=== PATIENT | female | born 1990 ===

== ENCOUNTER 2017-04-11 19:54 | Emergency (ER) | payer MEDICAID ==
--- NOTE | 2017-04-11 21:21 | OBHP ---
Datetime: 04/11/2017 20:19 IP Adm Impression Other: nst reactive IP Admit Plan: Discharge home Admit Comment, IP Provider: Patient here for nst due to hypothyroidism NST reactive discharge home follow up in3 days fpor nst and bpp Pelvic Type - PN: Adequate Extremities - PN: Normal Abdomen - PN: Normal Back - PN: Normal Lungs - PN: Normal Heart - PN: Normal Neurologic - PN: Normal General - PN: Normal EGA AdmitDate IP: 39.4 Vital Signs Provider: Reviewed IP Chief Complaint: evaluation Genitourinary Exam: Normal DTRs - PN: Normal
[2017-04-12 01:32] VITALS: BP 110/70; PULSE 80; RESP 20; TEMP 97.6; O2SAT 97
== END 2017-04-11 21:20 | disposition home or self-care (01) ==
LOC: C.EROB 19:54
DX: Z23 Encounter for immunization (principal); Z3A.39 39 weeks gestation of pregnancy

== ENCOUNTER 2017-04-14 08:03 | Emergency (ER) | payer MEDICAID ==
[2017-04-14 10:59] VITALS: BP 101/58; PULSE 84; RESP 18; TEMP 98.2
--- NOTE | 2017-04-14 11:59 | US ---
PROCEDURE: Obstetrical ultrasound examination and a limited biophysical profile HISTORY: post dates COMPARISON: Not available TECHNIQUE: Transabdominal FINDINGS: The examination demonstrates a single live intrauterine gestation in cephalic presentation. The heart rate is 141 beats per minute. A grossly normal quantity of amniotic fluid is visualized. The BENNY is 13.5 cm. A normal posterior placenta is identified. There is no evidence placenta previa. The cervix measures 2.6 cm in length. biometry yields a gestational age of 40 weeks 0 days. ARTUR by ultrasound is 04/14/2017. The EFW is 3950 g. Umbilical arterial duplex Doppler analysis demonstrates an SD ratio of 2.2. Within normal limits. Limited review of anatomy demonstrates 2 normal kidneys. A three-vessel umbilical cord is identified. The anterior abdominal wall is intact. There is fluid distending the stomach and urinary bladder. A 4 chamber heart is identified. Limited biophysical profile examination yields a score of 8 out of 8. IMPRESSION: Single live intrauterine gestation of approximately 40 weeks 0 days. ARTUR is 04/14/2017. EFW is 3950 g. biophysical profile score 8 out of 8. Cephalic presentation. Posterior placenta with no previa. Normal limited anatomy.
== END 2017-04-14 10:49 | disposition home or self-care (01) ==
LOC: C.EROB 08:03
DX: Z36 Encounter for antenatal screening of mother (principal)

== ENCOUNTER 2017-04-18 09:04 | Emergency (ER) | payer MEDICAID ==
--- NOTE | 2017-04-18 11:49 | US ---
OB ultrasound Ultrasound biophysical profile Indication: Post dates Technique: Grayscale, color flow, and M-mode sonographic images of the single live intrauterine were obtained. Comparison: None available Findings: There is a single live intrauterine gestation. The fetus is in cephalic position. The placenta is posterior. There is no evidence of previa. There is a normal amount of amniotic fluid. The BENNY measures 13.0 cm. M-mode imaging demonstrates a heart rate to be 138.9 beats per min. Cervix length measures approximately 3.4 cm. Fetus has a composite sonographic age of 40 weeks 0 days. This calculation is based on the biparietal diameter, head circumference, abdominal circumference, and femur length. movements 2/2 breathing 2/2 tone 2/2 Amniotic fluid 2/2 Total score impression: 03/07 Impression: Biophysical profile of 8 out of 8. Single live intrauterine in cephalic position with a heart rate of 138.9 beats per min.
--- NOTE | 2017-04-18 12:15 | OBHP ---
Datetime: 04/18/2017 11:43 IP Adm Impression: Term, intrauterine IP Chief Complaint Other: NST IP Admit Plan: Discharge home Admit Comment, IP Provider: Chief complaint- evaluation. HPI 27 yo at 40w4d ARTUR 04/14/17 by first trimester US presents to L and D today for NST. Carlos redd is doing well, no complaints at this time. Endorses +FM, denies CTX, VB, LOF. Patient was seen in the clinic today. 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 SAB 2. Current [employer]ER Hx: LMP - 06/29/16 13/irregular/5-6 days Denies hx of fibroids, ovarian cysts Denies hx of STIs Denies hx of abnormal pap smears Allergies: NKDA Medical Hx: Kim Medications: PNV, Levothyroxine Surgical Hx: D+C Social Hx: denies alcohol, tobacco, drug use PE: see above A/P: 27 yo at 40w4d presents today for NST 1. Stable, afebrile 2. NST reactive, category I tracing 3. BPP today - 03/07 4. Patient clear for discharge home 5. Labor precautions given, patient is scheduled for induction on evening 6. Plan d/w attending Aida Paredes DO PGY-1 Patient examined.Agree with resident exam,assessment and plan Meli Extremities - PN: Normal Abdomen - PN: Normal Back - PN: Normal Lungs - PN: Normal Heart - PN: Normal General - PN: Normal FHR - Baseline A Provider: 135 Comments, ACOG Physical Exam: VS: BP 109/61 HR 77 Gen: AAOx3 Abd: soft, gravid, no fundal tenderness Ext: No clubbing, cyanosis, edema SVE: 1-2/50/-3 EFM: 135, moderate variability, +accels, -decels TOCO: q5-6min BPP- Single IUP, posterior placenta, BENNY 13.0cm, presentation - cephalic EGA AdmitDate IP: 40.4 Vital Signs Provider: Reviewed; Within Normal Limits IP Chief Complaint: Other NICHD Variability Prov Fetus A: Moderate 6-25bpm NICHD Accel Fetus A IP Provider: 15X15 FHR Category Provider Fetus A: Category I NICHD Decel Fetus A IP Provider: None Dilatation, Provider: 1-2 Effacement, Provider: 50 Station, Provider: -3 Datetime: 04/14/2017 10:39 IP Hx Assessment: The History has been Reviewed and is Current
== END 2017-04-18 12:00 | disposition home or self-care (01) ==
LOC: C.EROB 09:04
DX: Z36 Encounter for antenatal screening of mother (principal)

== ENCOUNTER 2017-04-19 00:23 | Inpatient (IN) | payer MEDICAID ==
--- NOTE | 2017-04-19 01:33 | OBADHP ---
Datetime: 04/19/2017 01:22 Admit Comment, IP Provider: chief complaint-decreased movement HPI Chief complaint- evaluation. HPI 27 yo at 40w5d ARTUR 04/14/17 by first trimester US presents to L and D with c/o decrease d movement for last 5 hours..VB, LOF. Patient was seen in the clinic today. 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 - 06/29/16 13/irregular/5-6 days Denies hx of fibroids, ovarian cysts Denies hx of STIs Denies hx of abnormal pap smears Allergies: NKDA Medical Hx: Kim Medications: PNV, Levothyroxine Surgical Hx: D+C Social Hx: denies alcohol, tobacco, drug use PE: see above A/P: 27 yo at 40w5d with c/o decreased movement -admit -see orders Pelvic Type - PN: Adequate Extremities - PN: Normal Abdomen - PN: Normal Back - PN: Normal Lungs - PN: Normal Heart - PN: Normal Neurologic - PN: Normal General - PN: Normal Weight - Estimated: 3400 Presentation-Admit: Vertex Contraction Comments Provider: irregular Gestation - Est Wks by US: 40.5 IP Hx Assessment: The History has been Reviewed and is Current Vital Signs Provider: Reviewed; Within Normal Limits IP Chief Complaint: Decreased movement FHR Category Provider Fetus A: Category I Genitourinary Exam: Normal DTRs - PN: Normal EGA AdmitDate IP: 40.5 IP Adm Impression: Postterm, intrauterine IP Admit Plan: Admit to unit Datetime: 04/18/2017 11:43 IP Chief Complaint Other: NST FHR - Baseline A Provider: 135 Comments, ACOG Physical Exam: VS: BP 109/61 HR 77 Gen: AAOx3 Abd: soft, gravid, no fundal tenderness Ext: No clubbing, cyanosis, edema SVE: 1-2/50/-3 EFM: 135, moderate variability, +accels TOCO: q5-6min BPP- Single IUP, posterior placenta, BENNY 13.0cm, presentation - cephalic NICHD Variability Prov Fetus A: Moderate 6-25bpm NICHD Accel Fetus A IP Provider: 15X15 Dilatation, Provider: 1-2 Effacement, Provider: 50 Station, Provider: -3 Datetime: 04/14/2017 10:39 NICHD Decel Fetus A IP Provider: None Datetime: 04/11/2017 20:19 IP Adm Impression Other: nst reactive
[2017-04-19] MEDS ORDERED: Oxytocin 30 UNIT 30 UNITS/500 ML BAG IV PRN (01:52)
[2017-04-19 02:22] LABS: BASO % 0.2 % (0.0-2.0); EOS # 0.1 K/uL (0.0-0.7); EOS % 0.9 % (0.0-4.0); HEMATOCRIT 31.2 % (34.0-47.0); LYMPH # 1.4 K/uL (1.0-4.3); LYMPH % 12.1 % (20.0-40.0); MEAN CELL VOLUME 77.5 fL (81.0-99.0); MEAN CORPUSCULAR HEMOGLOBIN 24.7 pg (27.0-31.0); MEAN CORPUSCULAR HGB CONC 31.8 g/dL (33.0-37.0); MEAN PLATELET VOLUME 9.1 fL (7.2-11.7); MONO # 1.3 K/uL (0.0-0.8); MONO % 10.9 % (0.0-10.0); NRBC % 0.1 % (0.0-2.0); RBC URINE 1 /hpf (0-3); RED CELL DISTRIBUTION WIDTH 16.9 % (11.5-14.5); URINE BILIRUBIN NEGATIVE (NEGATIVE); URINE BLOOD 3+ (NEGATIVE); URINE COLOR Yellow (YELLOW); URINE GLUCOSE (UA) NORMAL (Normal); URINE KETONE NEGATIVE (NEGATIVE); URINE LEUKOCYTE ESTERASE 2+ Leu/uL (Negative); URINE PROTEIN NEGATIVE (NEGATIVE); URINE UROBILINOGEN NORMAL mg/dL (0.2-1.0); WBC URINE 39 /hpf (0-5); WHITE BLOOD COUNT 11.9 K/uL (4.8-10.8)
[2017-04-19] MEDS ORDERED: Oxytocin 30 UNIT 30 UNITS/500 ML BAG IV ONE (02:22)
[2017-04-19 02:33] LABS: CHLORIDE 104 mmol/L (98-107); POTASSIUM 3.4 mmol/L (3.6-5.2); SODIUM 138 mmol/L (132-148)
[2017-04-19 02:35] LABS: GFR AFRICAN-AMERICAN > 60
[2017-04-19 02:36] LABS: ALB/GLOB RATIO 1.1 (1.0-2.1); ALKALINE PHOSPHATASE 180 U/L (38-126); ALT/SGPT 33 U/L (9-52); AST/SGOT 25 U/L (14-36); BILIRUBIN,TOTAL 0.3 mg/dL (0.2-1.3); BLOOD UREA NITROGEN 8 mg/dL (7-17); CARBON DIOXIDE 21 mmol/L (22-30); GLUCOSE,RANDOM 83 mg/dL (65-105); TOTAL PROTEIN 6.4 g/dL (6.3-8.3)
[2017-04-19 02:37] LABS: CALCIUM 8.6 mg/dl (8.6-10.4)
[2017-04-19] MEDS ORDERED: Nalbuphine 20 mg/ml Inj (1 ml) IVP PRN (05:45)
[2017-04-19] MEDS: Lactated Ringer's 1,000 ML IV SCH (06:15)
--- NOTE | 2017-04-19 10:09 | OBPN ---
Datetime: 04/19/2017 09:48 IP Progress Impression: Normal progression of labor IP Progress Plan: Continue present management Membranes, Provider: Intact Contraction Comments Provider: q 1-2 FHR - Baseline A Provider: 150 Gestation - Est Wks by US: 40.5 Presentation-Admit: Vertex IP Progress Note Comment: Pt seen and examined and reports pain is better conrolled with medication. pt deies lof, vb, rpeors less movements VSS EFM: Cat I TOCO: q 2 min A/P @ 40.5 wks GA IOL for decreased movements -s/p IV Pheergna, nubain -oxygen, left lateral, resusctin as needed -on Pitocin as per protocol -cont curret managment FHR Category Provider Fetus A: Category I NICHD Variability Prov Fetus A: Moderate 6-25bpm Dilatation, Provider: 2 Effacement, Provider: 50 Station, Provider: -3 NICHD Decel Fetus A IP Provider: None Datetime: 04/19/2017 01:22 Weight - Estimated: 3400 Vital Signs Provider: Reviewed; Within Normal Limits Datetime: 04/18/2017 11:43 NICHD Accel Fetus A IP Provider: [id number]
--- NOTE | 2017-04-19 14:41 | OBPN ---
Datetime: 04/19/2017 14:37 IP Progress Impression: Normal progression of labor IP Procedures: Artificial ROM IP Progress Plan: Continue present management Membranes, Provider: Ruptured Amniotic Fluid Color, Provider: Bloody FHR - Baseline A Provider: 150 IP Progress Note Comment: pt seen and examined c/o of ashely cherry lof, vb, +FM VSS EMF: cat I TOCO: q 2-4 min VE: 2/50/-3 vtx AROM, blood tinged A/P @ 40.5 wks GA IOL for decresaed movements -pitocn as per protocol -con tcurrent managnet Vital Signs Provider: Reviewed; Within Normal Limits NICHD Variability Prov Fetus A: Moderate 6-25bpm Dilatation, Provider: 2 Effacement, Provider: 50 Station, Provider: -3 NICHD Decel Fetus A IP Provider: None Datetime: 04/19/2017 13:01 Contraction Comments Provider: q 2 min Gestation - Est Wks by US: 40.5 Presentation-Admit: Vertex
[2017-04-19] MEDS ORDERED: Bupivacaine 0.125%/FentaNYL 200 ML EPI ONE (16:09)
[2017-04-19] MEDS ORDERED: Bupivacaine HCl 0.25% PF (10 ml) Inj ONE (16:12)
[2017-04-19] MEDS ORDERED: cefOXitin IV 2 gm in Dextrose 2 GM/50 ML BAG IVPB ONE ×2 (17:09→18:36)
[2017-04-19] MEDS ORDERED: Dextrose 5%/Lactated Ringer's 1,000 ML IV SCH (17:15)
[2017-04-19] MEDS: Dextrose 5%/Lactated Ringer's 1,000 ML IV SCH (17:28)
[2017-04-19] MEDS ORDERED: Sodium Citrate/Citric Acid 15 ml Sol PO ONE (17:30)
[2017-04-19] MEDS ORDERED: Sodium Citrate/Citric Acid 15 ml Sol ONE (18:35)
[2017-04-19] MEDS ORDERED: Gentamicin 80 mg/2mL Inj. ONE (19:11)
[2017-04-19] MEDS ORDERED: Clindamycin 600mg/50ml NS 600 MG/50 ML BAG IVPB ONE (19:11)
--- NOTE | 2017-04-19 19:28 | OBPN ---
Datetime: 04/19/2017 19:24 IP Progress Impression: Arrest of dilatation/descent IP Informed Consent Obtain: Risks, Benefits and Alternatives Discussed IP Procedures: Artificial ROM IP Progress Plan: Deliver- Section Membranes, Provider: Ruptured Amniotic Fluid Color, Provider: Bloody Contraction Comments Provider: q 4 FHR - Baseline A Provider: 150 Gestation - Est Wks by US: 40.5 IP Progress Note Comment: pt seen and examined and reports pain improved after epidural. pt with lo w grade temperature. VS Temp 100 EFM: Ct I TOCP; q 2-4 min A/P @ 40.5 wks GA with Arrest of dilation and chorioamniosis for PLTCS -r/b/a/i of pltcs not lmitd to bleeding infection dw patient -conset signed and witnessed -or/anesthesia aware -amp/gent/clinda -abdoina prep -chao to graivty Vital Signs Provider: Reviewed FHR Category Provider Fetus A: Category I NICHD Variability Prov Fetus A: Moderate 6-25bpm Dilatation, Provider: 2 Effacement, Provider: 50 Station, Provider: -3
[2017-04-19] MEDS: AMPicillin 2 GM in Sodium Chloride 0.9% 100 ML IVPB SCH (19:32)
[2017-04-19] MEDS ORDERED: Sodium Bicarbonate (8.4%) 50 Meq Syringe ONE (20:00)
[2017-04-19] MEDS ORDERED: Oxytocin 20 units in LR 2,000 ML IV ONE (20:02)
[2017-04-19] MEDS ORDERED: Morphine 1 mg/ml preservative-free Inj(Duramorph) ONE (20:58)
--- NOTE | 2017-04-19 21:37 | OBDS ---
DELIVERY PERSONNEL Delivery Doctor: Ulices Aguiar MD Scrub Nurse: Chrissy Hernandez Staple Processing Machine Operator: Martin Negro RN Anesthesiologist: Scott Post MD MATERNAL INFORMATION Delivery Anesthesia: Epidural Maternal Complications: Maternal Fever Provider Comments: live female infant lop postion thigh nuchal cord x 1 reduced agpars 9,9 weigt of 8lbs 1 ounces pediatricain presnet for delibery ebl 700ml no complicaitns LABOR SUMMARY EDC: 04/14/2017 00:00 No. Babies in Womb: 1 Attempted: No Labor Anesthesia: Epidural LABOR INFORMATION Reason for Induction: Postterm Oxytocin: Induction Group B Beta Strep: Negative Antibiotics # of Doses: x3 doses Antibiotics Time of Last Dose: 1999 Steroids Given: None Reason Steroids Not Administered: Not Applicable Other Reason Not Administered: 40 weeks MEMBRANES Membranes Rupture Method: Artificial Rupture of Membranes: 04/19/2017 14:20 Length of Rupture (hrs): 6.20 Amniotic Fluid Color: Bloody Amniotic Fluid Amount: Small Amniotic Fluid Odor: None STAGES OF LABOR Stage 3 hrs: 0 Stage 3 min: -24 CSECTION DELIVERY Primary Indication: Arrest of dilitation CSection Urgency: Elective CSection Incidence: Primary Labor: Labor Elective: Elective CSection Incision: Lower Uterine Transverse BABY A INFORMATION Infant Delivery Date/Time: 04/19/2017 20:32 Method of Delivery: Born in Route : No : N/A Forceps: N/A Vacuum Extraction: N/A Shoulder Dystocia : No SHOULDER DYSTOCIA BABY A Delivery Date/Time: 04/19/2017 20:32 PRESENTATION/POSITION BABY A Presentation: Cephalic Cephalic Presentation: Vertex Breech Presentation: N/A PLACENTA INFORMATION BABY A Placenta Delivery Time : 04/19/2017 20:08 Placenta Method of Delivery: Manual Removal Placenta Status: Delivered SCORES BABY A Heart Rate 1 min: >100 bpm Resp Effort 1 min: Good Cry Reflex Irritability 1 min: Cough or Sneeze or Pulls Away Muscle Tone 1 min: Active Motion Color 1 min: Body [place], Extremities Blue Resuscitation Effort 1 min: Tactile Stimulation SCORE 1 MIN: 9 Heart Rate 5 min: >100 bpm Resp Effort 5 min: Good Cry Reflex Irritability 5 min: Cough or Sneeze or Pulls Away Muscle Tone 5 min: Active Motion Color 5 min: Body [place], Extremities Blue Resuscitation Effort 5 min: N/A SCORE 5 MIN: 9 INFORMATION BABY A Gestational Age at Delivery: 40.5 Gestational Status: Term Outcome : Liveborn Condition : Stable Sex: Female IDENTIFICATION/MEDS BABY A ID Band Number: [id number] ID Band Location: Left Leg; Left Arm Sensor Applied: Yes Sensor Number: [id number] Sensor Location : Cord Clamp Vitamin K Given : Not Given Erythromycin Given: Not Given WEIGHT/LENGTH BABY A Infant Birthweight (gms): 3670 Weight (lb): 8 Weight (oz): 1 Infant Length Inches: 20.00 Length cms: 50.8 CORD INFORMATION BABY A No. Cord Vessels: 3 Nuchal Cord : Around Neck x1, Tight Cord Blood Taken: Yes Suction: Mouth; Nose ASSESSMENT BABY A Complications: None Physical Findings at Delivery: Within Normal Limits Infant Respirations: Appears Normal Superintendent Operations Division/ALS Called : No Care By: Dr. Rosenbaum/ Amada Mckeon RN Transferred To: [facility]
--- NOTE | 2017-04-19 21:44 | PCM.SURG1 ---
Surgeon's Initial Post Op Note - Surgeon's Notes Surgeon: Quyen Aguiar MD Medical Device Sales: Aida Paredes MD, Melia Ho Do Type of Anesthesia: Other Pre-Operative Diagnosis: Term intrauterine , Arrest of dilation, chorioamniotsis Operative Findings: live female infnat, lot positin, aprs 9,9 weigh tof 8lbs 1 ounce. normal appearing uterus, tubes and ovaires. Dr Niranjan Paredes, resident physiican was first assistnat and present for entire case and essential in gaining, entry, retraction, exposure, holding the bladder blade, cloisng all layers , obtaining hemostasis. Dr Melia Ho was also surgical assistna and prent for entire case and essential in retraciton, expousre, obtiaing hemostias , as above. Post-Operative Diagnosis: same as above Operation Performed: Primary low transveres cesesarion section Specimen/Specimens Removed: placenta Estimated Blood Loss: EBL {In ML}: 700 Blood Products Given: N/A Drains Used: No Drains Post-Op Condition: Good Date of Surgery/Procedure: 04/19/17 Time of Surgery/Procedure: 20:20
[2017-04-20] MEDS: Simethicone 80 mg Chewtab PO SCH ×5 (00:30→23:06)
[2017-04-20] MEDS: AMPicillin 2 GM in Sodium Chloride 0.9% 100 ML IVPB SCH ×4 (02:17→20:27)
[2017-04-20] MEDS: Dextrose 5%/Lactated Ringer's 1,000 ML IV SCH (02:23)
[2017-04-20] MEDS: Lactated Ringer's 1,000 ML IV SCH (02:25)
[2017-04-20 07:20] LABS: BASO % 0.3 % (0.0-2.0); EOS % 0.2 % (0.0-4.0); HEMATOCRIT 26.4 % (34.0-47.0); LYMPH # 1.1 K/uL (1.0-4.3); MEAN CELL VOLUME 76.8 fL (81.0-99.0); MEAN CORPUSCULAR HEMOGLOBIN 25.2 pg (27.0-31.0); MEAN CORPUSCULAR HGB CONC 32.8 g/dL (33.0-37.0); MEAN PLATELET VOLUME 9.2 fL (7.2-11.7); MONO # 1.1 K/uL (0.0-0.8); MONO % 8.2 % (0.0-10.0); PLATELET COUNT 169 K/uL (130-400); RED CELL DISTRIBUTION WIDTH 17.1 % (11.5-14.5); WHITE BLOOD COUNT 13.7 K/uL (4.8-10.8)
[2017-04-20 08:40] LABS: NEUTROPHIL 66 % (50-75); REACTIVE LYMPHOCYTES 1 % (0-0); TOTAL CELLS COUNTED 100
[2017-04-20] MEDS: Levothyroxine 50 MCG TAB PO SCH (08:56)
--- NOTE | 2017-04-20 09:40 | OBPPN ---
Datetime: 04/20/2017 07:32 PP Pain Prov: Within normal limits PP Nausea Prov: Denies PP Flatus Prov: No PP BM Prov: No PP Heart Prov: Normal PP Lungs Prov: Normal PP Abdomen/Uterus Prov: Normal PP CVA Tenderness Prov: Normal PP Extremities Prov: Normal PP C/S Incision Prov: Normal PP Progress Prov: Normal PP Impression Prov: Normal progression PP Plan Prov: Continue present management; Antibiotic therapy PP Progress Note Prov: Patient seen and examined at bedside. Per nursing no acute events overnight. Patient is doing well, pain is controlled. Chao is in draining to gravity, not ambulating yet. Lochi a is mild. Denies passing flatus or BM. Denies fevers, chills, nausea, vomiting, headaches, dizziness , cp, palpitations, sob. Breast feeding. VS: BP 110/68 HR 78 Temp 99.9 I/O: 5553/900 Gen: AAOx3, NAD CV: RRR Lungs: CTA B/L Abd: Soft, appropriately tender, fundus firm at umbilicus, dressing c/d/i Ext: No clubbing, cyanosis, edema; no calf tenderness, +SCDs Labs: 11.9>9.9/31.2<197 F/U am CBC O positive Rubella immune A/P: 27 yo at 40w5d s/p PLTCD 2/2 failure to progress and chorioamnionitis POD#1 1. Stable, currently afebrile; ( last fever 100.4 at 01:59am ) 2. Pain control - percocet and motrin prn 3. F/U am CBC 4. Chorioamnionitis - Continue Ampicillin, Genta, Clindamycin 5. Hashimotos Thyroiditis - Start Levothyroxine 50mcg daily 6. Discontinue chao - f/u voiding trial 7. Advance diet as tolerated 8. Encourage ambulation and hydration; encourage ISS use 9. Encourage breast feeding 10. Continue routine post care 11. Plan d/w attending Aida Paredes DO PGY-1 Patient examined.Agree with resident exam, assessment and plan continue antibiotics until afebrile for 24 hours follow up am cbc monitor closely Vital Signs Provider PP: Reviewed; Within Normal Limits
--- NOTE | 2017-04-20 09:52 | OP ---
PREOPERATIVE DIAGNOSIS: Term intrauterine , arrest of dilation, chorioamnionitis. POSTOPERATIVE DIAGNOSIS: Term intrauterine , arrest of dilation, chorioamnionitis. OPERATION PERFORMED: Primary low transverse section. SURGEON: Quyen Aguiar MD LACE STRIPPER: . Dr. Aida Paredes, resident physician was the director surgical, was present for entire case, and was essential in gaining entry, retraction, exposure, holding the bladder blade, delivering the , closing all layers, and obtaining hemostasis. Dr. Melia Ayala was also director surgical, was present for entire case who assisted in retraction, exposure, obtaining hemostasis, and delivering the . OPERATIVE FINDINGS: Live female infant, LOT position, Agars 9 and 9, weight of 8 pounds 1 ounces. Normal-appearing uterus, tubes, and ovaries bilaterally. ATTENDING HEALTH WORKERS: Also present at delivery. SPECIMEN REMOVED: Placenta. ESTIMATED BLOOD LOSS: 1000 mL. BLOOD PRODUCTS: None. COMPLICATIONS: None. DESCRIPTION OF PROCEDURE: The patient was taken to the operating room, where she was given epidural anesthesia. Once found to be adequate, she was placed on the operating table in dorsal supine position. The patient was prepped and draped in the usual sterile fashion. A time-out confirmed correct patient and correct procedure. A Pfannenstiel skin incision was made with a scalpel and carried in line to the underlying fascia with Bovie. The fascia was incised in the midline and incision was extended laterally with the Bovie. The superior aspect of the fascial incision was grasped with Allis and Aguila clamps and underlying rectus muscle dissected off bluntly. Attention was then turned to the superior aspect with similar fashion, was grasped with Allis and Aguila clamps and underlying rectus muscle resected off bluntly. The rectus muscle was then bluntly in the midline and the peritoneum identified in a clear space. Incision was extended laterally and superiorly until there was good visualization of the bladder. The lower end of the Nilsa was then inserted and lower intrauterine segment was incised after the vesicouterine peritoneum was incised with Metzenbaum scissors and bladder flap was created digitally and lower end of the Nilsa was then reinserted. The lower uterine segment was incised in transverse fashion. The uterine incision was extended laterally bluntly. The surgeon's hand entered the uterine cavity with atraumatic delivery of the head with tight nuchal cord that was reduced followed by atraumatic delivery of the shoulder followed by delivery of the body. Both oral and nasal passages of the baby were bulb suctioned. The umbilical cord was clamped and cut. The baby was handed off to waiting volleyball player. Cord blood and cord gases were collected and sent x2. The placenta was then delivered manually. The uterus was exteriorized and cleared off all clots and debris. The uterine incision was repaired with 0-Vicryl in running continuous locked fashion. A second layer of the same suture was used to close the uterus in a running imbricating manner. There was good hemostasis at the uterine incision site. There were normal tubes and ovaries. The uterus was then returned to the abdomen. The paracolic gutters were cleared of all clots and debris. The uterine incision was reinspected. There was good hemostasis noted. The peritoneum was reapproximated and closed with 2-0 chromic in a running continuous fashion. The rectus was reapproximated and closed with 2-0 chromic in an interrupted manner. The fascia was reapproximated and closed with 0 Vicryl in a running continuous fashion. The subcutaneous tissue was closed with 2-0 plain in an interrupted manner and the skin was reapproximated and closed with 3-0 Monocryl in a running subcuticular fashion. At the end of the procedure, all needle, sponge, and instrument counts were noted to be correct x2. The patient tolerated the procedure and was transferred to the recovery room in stable condition. Quyen Aguiar MD
[2017-04-20] MEDS: Prenatal Multivit/Folic Acid/Iron Tab PO SCH (10:29)
[2017-04-20] MEDS: Oxycodone/Acetaminophen 5/325 mg Tab PO PRN ×2 (15:11→23:09)
[2017-04-21] MEDS: AMPicillin 2 GM in Sodium Chloride 0.9% 100 ML IVPB SCH ×2 (01:24→10:19)
[2017-04-21] MEDS: Levothyroxine 50 MCG TAB PO SCH (08:15)
[2017-04-21] MEDS: Simethicone 80 mg Chewtab PO SCH ×5 (09:49→22:24)
[2017-04-21] MEDS: Prenatal Multivit/Folic Acid/Iron Tab PO SCH (09:50)
[2017-04-21] MEDS: Oxycodone/Acetaminophen 5/325 mg Tab PO PRN ×3 (11:22→22:23)
[2017-04-21 12:00] LABS: BASO % 0.2 % (0.0-2.0); EOS # 0.1 K/uL (0.0-0.7); EOS % 0.8 % (0.0-4.0); HEMATOCRIT 27.1 % (34.0-47.0); LYMPH # 0.9 K/uL (1.0-4.3); LYMPH % 8.6 % (20.0-40.0); MEAN CELL VOLUME 76.4 fL (81.0-99.0); MEAN CORPUSCULAR HEMOGLOBIN 25.6 pg (27.0-31.0); MEAN CORPUSCULAR HGB CONC 33.5 g/dL (33.0-37.0); MEAN PLATELET VOLUME 9.3 fL (7.2-11.7); MONO # 0.8 K/uL (0.0-0.8); MONO % 8.1 % (0.0-10.0); NRBC % 0.1 % (0.0-2.0); PLATELET COUNT 196 K/uL (130-400)
[2017-04-21 12:25] LABS: EOSINOPHIL 1 % (0-4); METAMYELOCYTE 1 % (0-0); MYELOCYTE 1 % (0-0); NEUTROPHIL 79 % (50-75); TOTAL CELLS COUNTED 100
--- NOTE | 2017-04-21 19:58 | OBPPN ---
Datetime: 04/21/2017 07:56 PP Pain Prov: Within normal limits PP Nausea Prov: Denies PP Flatus Prov: Yes PP BM Prov: No PP Abdomen/Uterus Prov: Normal PP Lochia Prov: Normal PP Extremities Prov: Normal PP C/S Incision Prov: Normal PP Impression Prov: Normal progression PP Plan Prov: Continue present management PP Progress Note Prov: Patient seen and examined at bedside. Per nursing no acute events overnight. Patient is doing well, pain is controlled. Lochia is moderate. Patient is ambulating and tolerating d iet. Passing flatus but no BM. Urinating without difficulty. Breast feeding. Denies headaches, dizzin ess, cp, palpitations, sob, urinary symptoms. VS: BP 107/63 HR 90 Temp 99.0 Gen: AAOx3 CV: RRR Lungs: CTA B/L Abd: Soft, appropriately tender, fundus firm below umbilicus, incision c/d/i with steristrips Ext: No clubbing, cyanosis, edema; no calf tenderness Labs: 11.9>9.9/31.2<197 13.7>8.7/26.4<169 O positive Rubella immune A/P: 27 yo at 40w5d s/p PLTCD 2/2 failure to progress and chorioamnionitis POD#2 1. Stable, afebrile 2. Pain control - percocet and motrin prn 3. F/U repeat CBC 4. Will discontinue triple abx after afebrile > 24 hours 5. Encourage ambulation and hydration 6. Encourage breast feeding 7. Continue routine post care 8. Anticipate d/c home tomorrow 9. Plan d/w attending Aida Paredes DO PGY-1 attending note. agrees with abov Vital Signs Provider PP: Reviewed; Within Normal Limits
[2017-04-22] MEDS: Levothyroxine 50 MCG TAB PO SCH (06:13)
[2017-04-22] MEDS: Oxycodone/Acetaminophen 5/325 mg Tab PO PRN (06:14)
[2017-04-22 08:34] VITALS: BP 107/64; PULSE 76; RESP 18; O2SAT 97
[2017-04-22] MEDS: Prenatal Multivit/Folic Acid/Iron Tab PO SCH (09:39)
[2017-04-22] MEDS: Simethicone 80 mg Chewtab PO SCH (09:39)
--- NOTE | 2017-04-22 10:22 | OBPPN ---
Datetime: 04/22/2017 08:21 PP Pain Prov: Within normal limits PP Nausea Prov: Denies PP Flatus Prov: Yes PP BM Prov: Yes PP Impression Prov: Normal progression PP Plan Prov: Continue present management; Discharge PP Progress Note Prov: Patient seen and examined at bedside. Per nursing no acute events overnight. Patient is doing well, pain is controlled. Lochia is mild. Patient is ambulating and tolerating diet. Urinating without difficulty. Passing flatus and BM. Breast feeding. Denies headaches, dizziness, cp , palpitations, sob, urinary symptoms. VS: BP 107/64 HR 76 Gen: AAOx3 CV: RRR Lungs: CTA B/L Abd: soft, appropriately tender, fundus firm 1 fingerbreath below umbilicus, incision c/d/i with s teristrips Ext: no clubbing, cyanosis, edema; no calf tenderness Labs: 11.9>9.9/31.2<197 13.7>8.7/26.4<169 10.0>9.1/27.1<196 O positive Rubella immune A/P: 27 yo at 40w5d s/p PLTCD 2/2 failure to progress and chorioamnionitis POD#3 1. Stable, afebrile 2. Pain control - percocet and motrin prn 3. Encourage ambulation and hydration; Encourage ISS use 4. Encourage 5. S/P triple abx therapy for chorioamnionitis, afebrile >24 hours 6. Kim's thyroiditis - continue synthroid 50mcg daily; f/u with [facility] for furt her management 7. Discussed methods of contraception - desires to use the patch 8. Anticipate d/c home today - pelvic rest x 6 weeks, percocet/motrin prn pain, continue Iron and vitamins, f/u with clinic in 1 week for incision check 9. Plan d/w attending Aida Paredes DO PGY-1 Attending NOte: Patient seen and evaluated by me with Resident. I agree with the documentation as above. Emphasi s made for follow up with Medicine/Endocrinology for continue management of thyroid disorder. Patien t is clinically stable. Vital Signs Provider PP: Reviewed; Within Normal Limits
--- NOTE | 2017-04-22 10:24 | OBDCSUM ---
Datetime: 04/22/2017 08:37 Discharged to, Provider: Home Follow up at, Provider: [facility] Disch Instr Activity: Normal activity; May be up to bathroom; May be up for meals; May Shower Disch Instr Diet: Regular Discharge Diet restrict Prov: none Discharge Instructions, Provider: Routine instructions given Discharge Diagnosis, Provider: Term Delivered Discharge Time: 04/22/2017 11:30 Follow up in weeks, Provider: 1 week Disch Referrals: None Contraception discussed, Prov: Yes Disch Activity Restrictions: No exercising; No lifting; No sexual activity; Nothing in vagina - Inte rcourse, tampons, douche Discharge Comment, Provider: Percocet/motrin prn pain Pelvic rest x 6 weeks Will need to schedule appointment to be seen by medical doctor at [facility] for manageme nt of Kim Thyroiditis Discharge Diagnosis Prov Other: S/P primary transverse section Kim's thyroiditis Anemia Contraception counseling Contraception after Delivery: Control Pill/Patch Datetime: 04/18/2017 11:54 Follow up at, Provider: [facility] Delivery Discharge Instructions, Provider: Routine instructions given Disch Activity Restrictions: No exercising; No lifting; No sexual activity; Nothing in vagina - Inte rcourse, tampons, douche
[2017-04-22 16:16] VITALS: TEMP 97.3
== END 2017-04-22 12:00 | disposition home or self-care (01) | DRG 370 ==
LOC: C.EROB 00:23 → C.4D 01:23 → C.4M 04-20 00:03
PROVIDERS: ADMIT Student in an Organized Health Care Education/Training Program; ATTEND Student in an Organized Health Care Education/Training Program
PROC: 10D00Z1 Extraction of Products of Conception, Low, Open Approach (ICD-10-PCS; principal; 2017-04-19)
DX: O41.1230 Chorioamnionitis, third trimester, not applicable or unspecified (principal); O99.02 Anemia complicating childbirth; O75.2 Pyrexia during labor, not elsewhere classified; E06.3 Autoimmune thyroiditis; O36.8130 Decreased fetal movements, third trimester, not applicable or unspecified; O69.1XX0 Labor and delivery complicated by cord around neck, with compression, not applicable or unspecified; Z3A.40 40 weeks gestation of pregnancy; Z37.0 Single live birth